=== PATIENT | female | born 2000 | race American Indian/Alaskan Native ===

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

== ENCOUNTER 2019-08-03 19:01 | Emergency (ER) | payer MEDICAID ==
[2019-08-03] MEDS ORDERED: IBUPROFEN 800 MG TAB PO ONE (20:07)
--- NOTE | 2019-08-03 21:06 | Emergency Department Report ---
ED ENT HPI - General Chief complaint: Sore Throat Stated complaint: THROAT PAIN Time Seen by Provider: 08/03/19 20:06 Source: patient Mode of arrival: Ambulatory Limitations: No Limitations - History of Present Illness Initial comments: Ms Elder is a 19 y/o aaf with hx of recurrent strep throat , who presents for sore throat for 1 week, pt state noc fever , pain with swallowing, no swelling, no stridor no wheezing, symptoms are exacerbated by swallowing, pain is relieved by nothing. there is no fever noted at this time. 152/100, R: 20, O2 sat: 99% , 99.8, MD complaint: sore throat Onset/Timin -: week(s) Location: throat Severity: moderate Severity scale (0 -10): 5 Quality: burning, sharp Consistency: intermittent Improves with: none Worsens with: swallowing Associated Symptoms: fever, sore throat - Related Data Previous Rx's Medication Instructions Recorded Last Taken Type HYDROcodone/APAP 5-325 [[place] 1 each PO Q6HR PRN #20 tablet 03/20/16 Unknown Rx 5/325] Ibuprofen [Motrin 600 MG tab] 600 mg PO Q8H PRN #30 tablet 03/20/16 Unknown Rx Multivitamin with Iron 1 each PO DAILY #30 tablet 03/20/16 Unknown Rx [Multivitamins with Iron] labetaloL [Labetalol 100mg TAB] 100 mg PO BID #60 tablet 03/21/16 Unknown Rx Clindamycin [Clindamycin CAP] 300 mg PO Q8H 7 Days cap 09/01/17 Unknown Rx HYDROcodone/APAP 5-325 [[place] 1 each PO Q4HR PRN #12 tablet 09/01/17 Unknown Rx 5/325] Ibuprofen [Motrin] 600 mg PO Q8H PRN #20 tablet 09/01/17 Unknown Rx Ibuprofen [Motrin] 600 mg PO Q8H PRN #30 tablet 07/03/18 Unknown Rx cephALEXin [Keflex] 500 mg PO Q6HR 10 Days capsule 07/03/18 Unknown Rx traMADoL [Ultram 50 MG tab] 50 mg PO Q6HR PRN #15 tablet 07/03/18 Unknown Rx Amoxicillin/Potassium Clav 1 each PO BID 7 Days #14 tablet 08/03/19 Unknown Rx [Augmentin 875-125 Tablet] Ibuprofen [Motrin 800 MG tab] 800 mg PO Q8HR PRN #30 tablet 08/03/19 Unknown Rx Allergies Allergy/AdvReac Type Severity Reaction Status Date / Time pollen extracts Allergy Anaphylaxis Verified 08/03/19 19:19 ED Dental HPI - General Chief complaint: Sore Throat Stated complaint: THROAT PAIN Time Seen by Provider: 08/03/19 20:06 Source: patient Mode of arrival: Ambulatory Limitations: No Limitations - Related Data Previous Rx's Medication Instructions Recorded Last Taken Type HYDROcodone/APAP 5-325 [[place] 1 each PO Q6HR PRN #20 tablet 03/20/16 Unknown Rx 5/325] Ibuprofen [Motrin 600 MG tab] 600 mg PO Q8H PRN #30 tablet 03/20/16 Unknown Rx Multivitamin with Iron 1 each PO DAILY #30 tablet 03/20/16 Unknown Rx [Multivitamins with Iron] labetaloL [Labetalol 100mg TAB] 100 mg PO BID #60 tablet 03/21/16 Unknown Rx Clindamycin [Clindamycin CAP] 300 mg PO Q8H 7 Days cap 09/01/17 Unknown Rx HYDROcodone/APAP 5-325 [[place] 1 each PO Q4HR PRN #12 tablet 09/01/17 Unknown Rx 5/325] Ibuprofen [Motrin] 600 mg PO Q8H PRN #20 tablet 09/01/17 Unknown Rx Ibuprofen [Motrin] 600 mg PO Q8H PRN #30 tablet 07/03/18 Unknown Rx cephALEXin [Keflex] 500 mg PO Q6HR 10 Days capsule 07/03/18 Unknown Rx traMADoL [Ultram 50 MG tab] 50 mg PO Q6HR PRN #15 tablet 07/03/18 Unknown Rx Amoxicillin/Potassium Clav 1 each PO BID 7 Days #14 tablet 08/03/19 Unknown Rx [Augmentin 875-125 Tablet] Ibuprofen [Motrin 800 MG tab] 800 mg PO Q8HR PRN #30 tablet 08/03/19 Unknown Rx Allergies Allergy/AdvReac Type Severity Reaction Status Date / Time pollen extracts Allergy Anaphylaxis Verified 08/03/19 19:19 ED Review of Systems ROS: Stated complaint: THROAT PAIN Other details as noted in HPI Constitutional: denies: chills, fever Eyes: denies: eye pain, eye discharge, vision change ENT: throat pain. denies: ear pain Respiratory: denies: cough, shortness of breath, wheezing Cardiovascular: denies: chest pain, palpitations Endocrine: no symptoms reported Gastrointestinal: denies: abdominal pain, nausea, diarrhea Genitourinary: denies: urgency, dysuria, discharge Musculoskeletal: denies: back pain, joint swelling, arthralgia Skin: denies: rash, lesions Neurological: denies: headache, weakness, paresthesias Psychiatric: denies: anxiety, depression Hematological/Lymphatic: denies: easy bleeding, easy bruising ED Past Medical Hx - Past Medical History Hx Hypertension: No Hx Congestive Heart Failure: No Hx Diabetes: No Hx Deep Vein Thrombosis: No Hx Renal Disease: No Hx Sickle Cell Disease: No Hx Seizures: No Hx Asthma: No Hx COPD: No Hx HIV: No - Social History Smoking Status: Never Smoker Substance Use Type: None - Medications Home Medications: Home Medications Medication Instructions Recorded Confirmed Last Taken Type HYDROcodone/APAP 5-325 [[place] 1 each PO Q6HR PRN #20 tablet 03/20/16 Unknown Rx 5/325] Ibuprofen [Motrin 600 MG tab] 600 mg PO Q8H PRN #30 tablet 03/20/16 Unknown Rx Multivitamin with Iron 1 each PO DAILY #30 tablet 03/20/16 Unknown Rx [Multivitamins with Iron] labetaloL [Labetalol 100mg TAB] 100 mg PO BID #60 tablet 03/21/16 Unknown Rx Clindamycin [Clindamycin CAP] 300 mg PO Q8H 7 Days cap 09/01/17 Unknown Rx HYDROcodone/APAP 5-325 [[place] 1 each PO Q4HR PRN #12 tablet 09/01/17 Unknown Rx 5/325] Ibuprofen [Motrin] 600 mg PO Q8H PRN #20 tablet 09/01/17 Unknown Rx Ibuprofen [Motrin] 600 mg PO Q8H PRN #30 tablet 07/03/18 Unknown Rx cephALEXin [Keflex] 500 mg PO Q6HR 10 Days capsule 07/03/18 Unknown Rx traMADoL [Ultram 50 MG tab] 50 mg PO Q6HR PRN #15 tablet 07/03/18 Unknown Rx Amoxicillin/Potassium Clav 1 each PO BID 7 Days #14 tablet 08/03/19 Unknown Rx [Augmentin 875-125 Tablet] Ibuprofen [Motrin 800 MG tab] 800 mg PO Q8HR PRN #30 tablet 08/03/19 Unknown Rx ED Physical Exam - General Limitations: No Limitations General appearance: alert, in no apparent distress - Head Head exam: Present: atraumatic, normocephalic - Eye Eye exam: Present: normal appearance, EOMI Pupils: Present: normal accommodation - ENT ENT exam: Present: mucous membranes moist, TM's normal bilaterally, normal external ear exam - Expanded ENT Exam Expanded Ear exam: Present: normal external inspection Throat exam: Positive: tonsillar erythema, tonsillar exudate, other (uvula midline no stridor no wheezing ). Negative: tonsillomegaly, R peritonsillar mass, L peritonsillar mass - Neck Neck exam: Present: normal inspection, full ROM. Absent: tenderness, meningismus, lymphadenopathy, thyromegaly - Respiratory Respiratory exam: Present: normal lung sounds bilaterally. Absent: respiratory distress, wheezes, chest wall tenderness - Cardiovascular Cardiovascular Exam: Present: regular rate, normal rhythm, normal heart sounds. Absent: systolic murmur, diastolic murmur, rubs, gallop - GI/Abdominal GI/Abdominal exam: Present: soft, normal bowel sounds. Absent: distended, tenderness - Extremities Exam Extremities exam: Present: normal inspection, full ROM. Absent: tenderness - Back Exam Back exam: Present: normal inspection, full ROM. Absent: tenderness - Neurological Exam Neurological exam: Present: alert, oriented X3, CN II-XII intact, normal gait - Psychiatric Psychiatric exam: Present: normal affect, normal mood - Skin Skin exam: Present: warm, dry, intact, normal color. Absent: rash ED Medical Decision Making - Lab Data Labs 08/03/19 Unknown Group A Strep Rapid Negative - Medical Decision Making rapid strep is negative, however physical exam: tonsilar exudated no lesions no stridor, no wheezing, and recurring infection , plan: augmentin, ibuprofen, prednisone follow up with ENT , pt verbalized agreement and understanding of discharge plan. Critical care attestation.: If time is entered above; I have spent that time in minutes in the direct care of this critically ill patient, excluding procedure time. ED Disposition Clinical Impression: Pharyngitis Qualifiers: Pharyngitis/tonsillitis etiology: unspecified etiology Qualified Code(s): J02.9 - Acute pharyngitis, unspecified Disposition: - TO HOME OR SELFCARE Is pt being admited?: No Does the pt Need Aspirin: No Condition: Stable Instructions: Pharyngitis (ED) Prescriptions: Amoxicillin/Potassium Clav [Augmentin 875-125 Tablet] 1 each PO BID 7 Days #14 tablet Ibuprofen [Motrin 800 MG tab] 800 mg PO Q8HR PRN #30 tablet PRN Reason: pain Referrals: FRANCESCA WEATHERS MD [Staff Physician] - 3-5 Days Forms: Work/School Release Form(ED) Time of Disposition: 21:40
== END 2019-08-03 21:51 | disposition home or self-care (01) ==
LOC: ED 19:01
DX: J02.9 Acute pharyngitis, unspecified (principal); Z79.1 Long term (current) use of non-steroidal anti-inflammatories (NSAID); Z79.2 Long term (current) use of antibiotics; Z79.899 Other long term (current) drug therapy; Z88.8 Allergy status to other drugs, medicaments and biological substances
CPT/HCPCS: 87116; 87430